=== PATIENT | female | born 1990 | race American Indian/Alaskan Native ===

== ENCOUNTER 2016-11-24 18:45 | Outpatient (CLI) | payer MEDICAID ==
[2016-11-24] MEDS ORDERED: LACTATED RINGERS 500 ML IV ONE (18:54)
[2016-11-24 19:04] VITALS: BP 116/77
== END 2016-11-24 20:30 | disposition home or self-care (01) ==
LOC: TRG 18:45
PROVIDERS: ATTEND Obstetrics & Gynecology
DX: Z34.93 Encounter for supervision of normal pregnancy, unspecified, third trimester (principal); Z3A.36 36 weeks gestation of pregnancy
CPT/HCPCS: 59025

== ENCOUNTER 2016-12-26 19:48 | Inpatient (IN) | payer MEDICAID ==
[2016-12-26] MEDS ORDERED: ePHEDrine SULFATE IV PRN (21:00)
[2016-12-26] MEDS ORDERED: SUBLIMAZE IV PRN (21:00)
[2016-12-26] MEDS ORDERED: BRETHINE IVP PRN (21:00)
[2016-12-26] MEDS ORDERED: BRETHINE SUB-Q PRN (21:00)
[2016-12-26] MEDS ORDERED: XYLOCAINE 2% INFILTRATI ONE (21:00)
[2016-12-26] MEDS ORDERED: MINERAL OIL PO PRN (21:00)
[2016-12-26] MEDS ORDERED: PITOCin/NS 20 UNIT/1000ML DRIP 20 UNITS/1,000 ML BAG IV SCH (21:00)
[2016-12-26] MEDS: LACTATED RINGERS 1,000 ML IV SCH (21:09)
[2016-12-26 22:01] LABS: Hematocrit 35.9 % (30.3-42.9); Hemoglobin 12.3 gm/dl (10.1-14.3); Mean Corpuscular HGB Conc 34 % (30-34); Mean Corpuscular Hemoglobin 30 pg (28-32); Mean Corpuscular Volume 89 fl (79-97); Platelet Count 225 K/mm3 (140-440); Red Blood Count 4.06 M/mm3 (3.65-5.03); Red Cell Distribution Width 13.1 % (13.2-15.2); White Blood Count 9.7 K/mm3 (4.5-11.0)
[2016-12-26] MEDS: CYTOTEC VAGINAL SCH (22:10)
[2016-12-27] MEDS: AMBIEN PO PRN (00:10)
[2016-12-27] MEDS: LACTATED RINGERS 1,000 ML IV SCH ×5 (02:06→23:02)
[2016-12-27] MEDS: CYTOTEC VAGINAL SCH (02:06)
--- NOTE | 2016-12-27 08:51 | History and Physical Report ---
History of Present Illness Date of examination: 12/27/16 Date of admission: 12/26/16 19:48 Chief complaint: sent for induction of labor History of present illness: Pt is a 26 year old female primigravida SUMAYA 12/19/16 at 41w1d who presents for induction of labor. She reports rare contractions and denies vaginal bleeding or leakage of fluid. She has had care at [facility]'s Staff Nurse Anesthetist since transfer into care at 24 wks complicated by morbid obesity, morbid obesity, migraine headaches, asthma, mh/o nephrolithiasis, and first trimester bleeding. She is GBS negative. Past History Past Medical History: asthma, neurologic (migraines ), kidney stones, other ( morbid obesity ) Past Surgical History: no surgical history Family/Genetic History: none Social history: no significant social history - Obstetrical History Expected Date of Delivery: 12/19/16 Actual Gestation: 41 Week(s) 1 Day(s) : 1 Medications and Allergies Allergies Allergy/AdvReac Type Severity Reaction Status Date / Time clindamycin Allergy Nausea Verified 11/24/16 18:50 Home Medications Medication Instructions Recorded Confirmed Last Taken Type Pnv95/Ferrous Fumarate/FA 1 each PO DAILY 11/24/16 11/24/16 1 Day Ago History [ Caplet] Active Meds: Active Medications Butorphanol Tartrate (Stadol) 2 mg IV Q2H PRN PRN Reason: Pain , Severe (7-10) Fentanyl (Sublimaze) 100 mcg IV Q2H PRN PRN Reason: Labor Pain Lactated Ringer's (Lactated Ringers) 1,000 mls @ 125 mls/hr IV DIRECT MONIE Last Admin: 12/27/16 08:01 Dose: 125 mls/hr Oxytocin/Sodium Chloride (Pitocin/Ns 20 Unit/1000ml Drip) 20 units in 1,000 mls @ 125 mls/hr IV DIRECT MONIE Mineral Oil (Mineral Oil) 30 ml PO QHS PRN PRN Reason: Constipation Misoprostol (Cytotec) 25 mcg VAGINAL Q4H MONIE Last Admin: 12/27/16 02:06 Dose: 25 mcg Zolpidem Tartrate (Ambien) 10 mg PO QHS PRN PRN Reason: Insomnia Last Admin: 12/27/16 00:10 Dose: 10 mg Review of Systems All systems: negative - Vital Signs Vital signs: Vital Signs Pulse Pulse Ox 108 H 97 12/26/16 20:15 12/26/16 20:15 Temp Pulse Resp BP Pulse Ox 97.2 F L 74 18 125/67 98 12/27/16 07:08 12/27/16 08:07 12/27/16 07:08 12/27/16 08:07 12/27/16 07:14 - Physical Exam Breasts: Positive: deferred Cardiovascular: Regular rate Lungs: Positive: Clear to auscultation Abdomen: Positive: soft (obese, gravid ) Genitourinary (Female): Positive: normal external genitalia Vagina: Positive: normal moisture Uterus: Positive: enlarged (gravid ) Extremities: Positive: edema (trace ) - Obstetrical FHR: auscultation normal Uterine Contraction Monitor Mode: External Cervical Dilatation: 1 Cervical Effacement Percentage: 60 station: -4 Uterine Contraction Frequency (min): 2-3 min Uterine Contraction Duration: 45 sec Uterine Contraction Pattern: Regular Uterine Tone Measurement Phase: Resting Uterine Contraction Intensity: Mild Results Result Diagrams: 12/26/16 20:30 Abnormal lab results 12/26/16 Range/Units 20:30 RDW 13.1 L (13.2-15.2) % All other labs normal. Assessment and Plan A: IUP at 41w1d s/p cytotec 25 mcg x2 doses Morbid Obesity Asthma Nephrolithiasis GBS negative P: Admit to labor and delivery. Routine intrapartum care.
[2016-12-27] MEDS ORDERED: PITOCin/NS 30 UNIT/500ML 30 UNITS/500 ML BAG IV SCH (10:00)
[2016-12-27] MEDS: STADOL IV PRN ×2 (10:50→12:45)
[2016-12-27] MEDS ORDERED: ePHEDrine SULFATE ONE (14:28)
[2016-12-27] MEDS ORDERED: ePHEDrine SULFATE IV PRN (15:39)
[2016-12-27] MEDS ORDERED: NARCAN 2 MG/2 ML IV PRN (15:39)
--- NOTE | 2016-12-27 15:39 | Anesthesia Consultation ---
Anesthesia Consult and Med Hx Date of service: 12/27/16 - Airway Anesthetic Teeth Evaluation: Good ROM Head & Neck: Adequate Mental/Hyoid Distance: Adequate Mallampati Class: Class II Intubation Access Assessment: Probably Good - Pulmonary Exam CTA: Yes - Cardiac Exam Cardiac Exam: RRR - Pre-Operative Health Status ASA Pre-Surgery Classification: ASA3 Proposed Anesthetic Plan: Epidural, Spinal - Pulmonary Hx Asthma: Yes (exercise induced) COPD: No Hx Pneumonia: No - Cardiovascular System Hx Hypertension: No - Central Nervous System Hx Seizures: No Hx Psychiatric Problems: No - Endocrine Hx Renal Disease: Yes (hx kidneystones 2014) Hx End Stage Renal Disease: No Hx Hypothyroidism: No Hx Hyperthyroidism: No - Hematic Hx Anemia: No Hx Sickle Cell Disease: No - Other Systems Hx Alcohol Use: No Hx Obesity: Yes (morbid BMI > 40)
[2016-12-27] MEDS: fentaNYL-BUPIV 2 MCG/ML-0.125% 200 MCG/100 ML BAG EPIDURAL SCH (16:45)
--- NOTE | 2016-12-27 16:55 | Ultrasound Report ---
LIMITED OB ULTRASOUND: History: position. Gestation: smith Position: cephalic Heart Rate: 141 BPM Estimated gestational ages 41 weeks one day.
[2016-12-27] MEDS ORDERED: MARCAINE-EPI/PF 0.5%-1:200,000 INFILTRATI ONE (19:04)
--- NOTE | 2016-12-27 20:44 | Event Note ---
Date: 12/27/16 Pt comfortable with epidural. Cervix 3.5/70/-3. SROM previously with clear fluid. IUPC and FSE placed. Continue routine intrapartum care.
[2016-12-28] MEDS: AMBIEN PO PRN (01:21)
[2016-12-28] MEDS ORDERED: PROAIR IH PRN (02:58)
[2016-12-28] MEDS ORDERED: PROVENTIL IH PRN (03:09)
[2016-12-28] MEDS: fentaNYL-BUPIV 2 MCG/ML-0.125% 200 MCG/100 ML BAG EPIDURAL SCH (07:01)
--- NOTE | 2016-12-28 07:06 | Event Note ---
Date: 12/28/16 Notified by nursing for bradycardic episode with spontaneous resolution. Patient had subsequent progression from 3cm to 6cm. IUPC in place. Will deliver for return of non-reasssuring tracing or arrest of dilation.
[2016-12-28] MEDS ORDERED: BRETHINE ONE (07:23)
[2016-12-28] MEDS ORDERED: BICITRA PO NR (07:30)
[2016-12-28] MEDS ORDERED: PEPCID IV NR (07:30)
[2016-12-28] MEDS ORDERED: REGLAN IV NR (07:30)
--- NOTE | 2016-12-28 07:30 | Progress Note ---
Assessment and Plan - Patient Problems (1) Post term at 41 weeks gestation Current Visit: Yes Status: Acute Plan to address problem: proceed with a primary delivery. (2) Prolonged labor Current Visit: Yes Status: Acute Qualifiers: Prolonged labor type: P Subjective - Subjective Date of service: 12/28/16 Interval history: 26y/o @ 41+2 weeks admitted for postdates induction. Patient has experienced a protracted labor. Currently tracing with evidence of late decelerations. Will discontinue pitocin and prep patient for delivery. Objective - Vital Signs Vital Signs: Vital Signs - 12hr 12/27/16 12/27/16 12/27/16 19:30 19:31 19:36 Pulse Rate 69 71 69 Blood Pressure 118/70 O2 Sat by Pulse 97 96 Oximetry 12/27/16 12/27/16 12/27/16 19:41 19:45 19:46 Pulse Rate 68 77 74 Blood Pressure 129/69 O2 Sat by Pulse 96 97 Oximetry 12/27/16 12/27/16 12/27/16 19:51 19:56 19:59 Pulse Rate 73 76 74 Blood Pressure 120/70 O2 Sat by Pulse 96 96 Oximetry 12/27/16 12/27/16 12/27/16 20:01 20:06 20:11 Pulse Rate 73 74 70 Blood Pressure O2 Sat by Pulse 96 95 97 Oximetry 12/27/16 12/27/16 12/27/16 20:15 20:16 20:21 Pulse Rate 86 92 H 105 H Blood Pressure 124/64 O2 Sat by Pulse 97 97 Oximetry 12/27/16 12/27/16 12/27/16 20:26 20:29 20:31 Pulse Rate 104 H 94 H 91 H Blood Pressure 122/74 O2 Sat by Pulse 96 97 Oximetry 12/27/16 12/27/16 12/27/16 20:36 20:41 20:46 Pulse Rate 88 98 H 115 H Blood Pressure 118/72 O2 Sat by Pulse 97 96 98 Oximetry 12/27/16 12/27/16 12/27/16 20:51 20:56 20:59 Pulse Rate 88 94 H 101 H Blood Pressure 112/69 O2 Sat by Pulse 96 97 Oximetry 12/27/16 12/27/16 12/27/16 21:01 21:06 21:11 Pulse Rate 111 H 111 H 111 H Blood Pressure O2 Sat by Pulse 97 96 96 Oximetry 12/27/16 12/27/16 12/27/16 21:14 21:16 21:21 Pulse Rate 94 H 104 H 102 H Blood Pressure 126/63 O2 Sat by Pulse 96 95 Oximetry 12/27/16 12/27/16 12/27/16 21:26 21:31 21:36 Pulse Rate 108 H 103 H 95 H Blood Pressure O2 Sat by Pulse 95 96 96 Oximetry 12/27/16 12/27/16 12/27/16 21:41 21:45 21:46 Pulse Rate 94 H 96 H 94 H Blood Pressure 106/64 O2 Sat by Pulse 96 96 Oximetry 12/27/16 12/27/16 12/27/16 21:51 21:56 21:59 Pulse Rate 84 96 H 90 Blood Pressure 111/65 O2 Sat by Pulse 95 95 Oximetry 12/27/16 12/27/16 12/27/16 22:01 22:04 22:06 Pulse Rate 96 H 81 88 Blood Pressure O2 Sat by Pulse 95 94 95 Oximetry 12/27/16 12/27/16 12/27/16 22:10 22:11 22:14 Pulse Rate 85 84 90 Blood Pressure 110/59 O2 Sat by Pulse 94 95 Oximetry 12/27/16 12/27/16 12/27/16 22:16 22:21 22:26 Pulse Rate 98 H 87 92 H Blood Pressure O2 Sat by Pulse 94 96 96 Oximetry 12/27/16 12/27/16 12/27/16 22:29 22:31 22:36 Pulse Rate 90 90 93 H Blood Pressure 110/61 O2 Sat by Pulse 95 94 Oximetry 12/27/16 12/27/16 12/27/16 22:41 22:45 22:46 Pulse Rate 91 H 92 H 87 Blood Pressure 120/60 O2 Sat by Pulse 95 94 95 Oximetry 12/27/16 12/27/16 12/27/16 22:51 22:56 22:59 Pulse Rate 85 86 95 H Blood Pressure 113/59 O2 Sat by Pulse 95 95 Oximetry 12/27/16 12/27/16 12/27/16 23:01 23:06 23:11 Pulse Rate 92 H 86 82 Blood Pressure O2 Sat by Pulse 97 95 97 Oximetry 12/27/16 12/27/16 12/27/16 23:15 23:16 23:21 Pulse Rate 86 85 84 Blood Pressure 119/58 O2 Sat by Pulse 95 96 Oximetry 12/27/16 12/27/16 12/27/16 23:26 23:29 23:31 Pulse Rate 90 83 90 Blood Pressure 105/66 O2 Sat by Pulse 95 94 95 Oximetry 12/27/16 12/27/16 12/27/16 23:36 23:38 23:41 Pulse Rate 87 89 81 Blood Pressure O2 Sat by Pulse 95 94 95 Oximetry 12/27/16 12/27/16 12/27/16 23:44 23:46 23:50 Pulse Rate 95 H 83 92 H Blood Pressure 107/65 109/62 O2 Sat by Pulse 95 Oximetry 12/27/16 12/27/16 12/28/16 23:51 23:56 00:00 Pulse Rate 68 81 98 H Blood Pressure 105/58 O2 Sat by Pulse 97 96 Oximetry 12/28/16 12/28/16 12/28/16 00:01 00:06 00:11 Pulse Rate 97 H 115 H 96 H Blood Pressure O2 Sat by Pulse 96 96 96 Oximetry 12/28/16 12/28/16 12/28/16 00:14 00:16 00:20 Pulse Rate 90 87 96 H Blood Pressure 104/58 O2 Sat by Pulse 96 94 Oximetry 12/28/16 12/28/16 12/28/16 00:21 00:26 00:30 Pulse Rate 91 H 102 H 102 H Blood Pressure 122/60 O2 Sat by Pulse 94 97 Oximetry 12/28/16 12/28/16 12/28/16 00:31 00:36 00:41 Pulse Rate 99 H 103 H 123 H Blood Pressure O2 Sat by Pulse 95 97 97 Oximetry 12/28/16 12/28/16 12/28/16 00:45 00:46 00:51 Pulse Rate 111 H 124 H 116 H Blood Pressure 124/74 O2 Sat by Pulse 97 96 Oximetry 12/28/16 12/28/16 12/28/16 00:56 01:01 01:06 Pulse Rate 114 H 118 H 100 H Blood Pressure 111/65 O2 Sat by Pulse 97 96 96 Oximetry 12/28/16 12/28/16 12/28/16 01:11 01:15 01:16 Pulse Rate 112 H 113 H 108 H Blood Pressure 109/59 O2 Sat by Pulse 97 95 Oximetry 12/28/16 12/28/16 12/28/16 01:21 01:26 01:29 Pulse Rate 106 H 103 H 101 H Blood Pressure 106/56 O2 Sat by Pulse 96 95 94 Oximetry 12/28/16 12/28/16 12/28/16 01:31 01:36 01:41 Pulse Rate 117 H 107 H 103 H Blood Pressure O2 Sat by Pulse 95 96 95 Oximetry 12/28/16 12/28/16 12/28/16 01:46 01:51 01:56 Pulse Rate 110 H 104 H 102 H Blood Pressure 117/61 O2 Sat by Pulse 95 96 94 Oximetry 12/28/16 12/28/16 12/28/16 02:01 02:06 02:25 Pulse Rate 101 H 94 H 85 Blood Pressure 103/58 O2 Sat by Pulse 95 95 96 Oximetry 12/28/16 12/28/16 12/28/16 02:30 02:35 02:40 Pulse Rate 84 83 85 Blood Pressure O2 Sat by Pulse 97 97 97 Oximetry 12/28/16 12/28/16 12/28/16 02:45 02:50 02:55 Pulse Rate 87 83 78 Blood Pressure O2 Sat by Pulse 97 97 96 Oximetry 12/28/16 12/28/16 12/28/16 03:00 03:05 03:10 Pulse Rate 81 82 80 Blood Pressure O2 Sat by Pulse 97 96 96 Oximetry 12/28/16 12/28/16 12/28/16 03:15 03:20 03:25 Pulse Rate 81 83 84 Blood Pressure O2 Sat by Pulse 96 96 96 Oximetry 12/28/16 12/28/16 12/28/16 03:28 03:30 03:33 Pulse Rate 83 78 80 Blood Pressure O2 Sat by Pulse 94 97 94 Oximetry 12/28/16 12/28/16 12/28/16 03:35 03:40 03:41 Pulse Rate 83 77 81 Blood Pressure O2 Sat by Pulse 95 95 94 Oximetry 12/28/16 12/28/16 12/28/16 03:45 03:46 03:50 Pulse Rate 78 78 76 Blood Pressure O2 Sat by Pulse 95 94 96 Oximetry 12/28/16 12/28/16 12/28/16 03:55 04:00 04:02 Pulse Rate 75 74 83 Blood Pressure O2 Sat by Pulse 95 95 93 Oximetry 12/28/16 12/28/16 12/28/16 04:05 04:10 04:14 Pulse Rate 77 74 85 Blood Pressure O2 Sat by Pulse 96 95 94 Oximetry 12/28/16 12/28/16 12/28/16 04:18 04:23 04:28 Pulse Rate 88 78 77 Blood Pressure O2 Sat by Pulse 96 96 96 Oximetry 12/28/16 12/28/16 12/28/16 04:33 04:38 04:43 Pulse Rate 86 102 H 96 H Blood Pressure O2 Sat by Pulse 95 97 97 Oximetry 12/28/16 12/28/16 12/28/16 04:48 04:53 04:58 Pulse Rate 102 H 92 H 89 Blood Pressure O2 Sat by Pulse 97 96 96 Oximetry 12/28/16 12/28/16 12/28/16 05:03 05:08 05:13 Pulse Rate 94 H 88 89 Blood Pressure O2 Sat by Pulse 96 96 96 Oximetry 12/28/16 12/28/16 12/28/16 05:18 05:23 05:28 Pulse Rate 89 93 H 116 H Blood Pressure O2 Sat by Pulse 96 96 98 Oximetry 12/28/16 12/28/16 12/28/16 05:37 05:42 05:47 Pulse Rate 90 86 80 Blood Pressure O2 Sat by Pulse 100 99 99 Oximetry 12/28/16 12/28/16 12/28/16 05:52 05:57 06:02 Pulse Rate 83 82 80 Blood Pressure O2 Sat by Pulse 99 99 99 Oximetry 12/28/16 12/28/16 12/28/16 06:07 06:12 06:17 Pulse Rate 78 82 79 Blood Pressure O2 Sat by Pulse 99 99 99 Oximetry 12/28/16 12/28/16 12/28/16 06:22 06:27 06:32 Pulse Rate 80 98 H 79 Blood Pressure O2 Sat by Pulse 99 99 99 Oximetry 12/28/16 12/28/16 12/28/16 06:37 06:42 06:47 Pulse Rate 84 82 81 Blood Pressure O2 Sat by Pulse 98 98 99 Oximetry 12/28/16 12/28/16 12/28/16 06:52 06:57 07:01 Pulse Rate 99 H 82 84 Blood Pressure 91/51 O2 Sat by Pulse 98 99 Oximetry 12/28/16 12/28/16 12/28/16 07:02 07:07 07:12 Pulse Rate 88 83 82 Blood Pressure O2 Sat by Pulse 97 96 97 Oximetry 12/28/16 12/28/16 07:17 07:22 Pulse Rate 85 83 Blood Pressure O2 Sat by Pulse 97 98 Oximetry - Labs Labs: Abnormal Labs 12/26/16 20:30 RDW 13.1 L
--- NOTE | 2016-12-28 07:31 | Procedure Note ---
OB Delivery Note - Delivery Date of Delivery: 12/28/16 Surgeon: MARZENA STEVENS Estimated blood loss: other (1400ml) - Section Preop diagnosis: nonreassuring FHR tracing Postop diagnosis: same section procedure: section, primary low transverse Disposition: PACU Complications: uterine atony - Infant A at 1 minute: 8 at 5 minutes: 9 Gender: Male (weight 9 lbs. 15 oz.)
[2016-12-28] MEDS ORDERED: NARCAN 0.4 MG/1 ML IV PRN ×2 (07:32→09:25)
[2016-12-28] MEDS ORDERED: TORADOL IV PRN (07:32)
[2016-12-28] MEDS ORDERED: TYLENOL PO PRN (07:32)
[2016-12-28] MEDS ORDERED: LANSINOH TP PRN (07:32)
[2016-12-28] MEDS ORDERED: MYLICON PO PRN (07:32)
[2016-12-28] MEDS ORDERED: MORPHINE IV PRN (07:32)
[2016-12-28] MEDS ORDERED: MOTRIN PO PRN (07:32)
[2016-12-28] MEDS ORDERED: TUCKS PAD TP PRN (07:32)
[2016-12-28] MEDS ORDERED: BRETHINE SUB-Q NR (07:38)
[2016-12-28] MEDS ORDERED: SODIUM CHLORIDE FLUSH SYRINGE 10 ML IV NR ×2 (08:00→10:00)
[2016-12-28] MEDS ORDERED: PITOCin/NS 20 UNIT/1000ML DRIP 20 UNITS/1,000 ML BAG IV SCH ×2 (08:00)
[2016-12-28] MEDS ORDERED: D5LR 1,000 ML IV SCH (08:00)
[2016-12-28] MEDS ORDERED: ANCEF/STERILE WATER 2 GM/20 ML 2 GM/20 ML SYRINGE IV NR (08:00)
[2016-12-28] MEDS ORDERED: LACTATED RINGERS 1,000 ML IV SCH (08:00)
[2016-12-28 09:01] LABS: Anion Gap 20 mmol/L; Blood Urea Nitrogen 10 mg/dL (7-17); Calcium 7.7 mg/dL (8.4-10.2); Carbon Dioxide 21 mmol/L (22-30); Chloride 101.7 mmol/L (98-107); Glucose 119 mg/dL (65-100); Potassium 3.6 mmol/L (3.6-5.0); Sodium 139 mmol/L (137-145)
--- NOTE | 2016-12-28 09:05 | Operative Report ---
Operative Report Operative Report: Date of surgery: 12/28/2016 Preoperative diagnosis: at 41+2 weeks; nonreassuring heart rate tracing; morbid obesity Postoperative diagnosis: Same as above; uterine atony Procedure: Primary low transverse delivery Surgeon: Michelle Tan M.D. Anesthesia: Regional Estimated blood loss: 1400 mL Findings: Liveborn male with Apgars of 8 and 9 weight 9 lbs. 15 oz. Indications: 26-year-old at 41+2 weeks who was admitted for induction of labor secondary to being postterm. Her intrapartum course was complicated by protracted labor and during the course of her labor the patient developed late decelerations. The patient had cervical progression to 6 cm. Procedure: The patient was taken to the operating room and given regional anesthesia without complication. She was prepped and draped in a normal sterile fashion. A Pfannenstiel skin incision was made down to layer the fascia which was nicked in the midline extended laterally with the Bovie cautery. The superior aspect of the rectus fascia was grasped with Maria D clamps x2 and the rectus muscles off sharply. This was done in inferior fashion as well. The rectus muscle midline and peritoneum entered bluntly. An Benjamin retractor was then inserted. A bladder blade was placed. The vesicouterine peritoneum was then entered sharply with Metzenbaum scissors. A bladder flap was created digitally. A low transverse uterine incision was then made and extended digitally. There was clear fluid upon entry into the uterine cavity. The head was delivered through the incision with fundal pressure. The cord was clamped and cut x2 and infant was passed off to pediatrics. The placenta was then manually extracted. The uterus was then exteriorized and cleared of clots and debris. The uterine incision was then closed in a running locked fashion with 0 Vicryl additional imbricating stitch was applied for 2 layer closure. The serosa was then reapproximated with 3-0 Vicryl. During the procedure there was noted that there was evidence of uterine atony. The patient's Pitocin was increased without any significant improvement. The patient was then given Methergine intraoperatively. The posterior cul-de-sac was then copiously irrigated. The uterus was replaced back into the abdomen and pelvis were the gutters were then irrigated. The Benjamin retractor was then removed. The peritoneum was then reapproximated with 3-0 Vicryl incorporating the rectus muscle. The fascia was then closed with 0 Vicryl in a running fashion. The skin was then reapproximated with 3-0 Monocryl on a Hayder needle subcuticular fashion. Steri-Strips to place across the incision and a Crede procedures performed at the end of the surgery. A pressure dressing was applied to the incision. The surgery productive of a liveborn male infant with Apgars of 8 and 9 weight 9 lbs. 15 oz. The patient was taken to the recovery room in stable condition. All sponge laps and needle counts correct x2.
[2016-12-28] MEDS ORDERED: NUBAIN IV PRN (09:25)
[2016-12-28] MEDS ORDERED: ZOFRAN IV PRN (09:25)
[2016-12-28] MEDS ORDERED: BENADRYL IV PRN (09:25)
--- NOTE | 2016-12-28 09:25 | Anesthesia Day of Surgery ---
Anesthesia Day of Surgery - Day of Surgery Patient Examined: Yes Patient H&P Reviewed: Yes Patient is NPO: Yes
[2016-12-28] MEDS ORDERED: ANCEF/STERILE WATER 2 GM/20 ML IV ONE (09:38)
[2016-12-28] MEDS ORDERED: WATER FOR IRRIG STERILE IR ONE (09:40)
[2016-12-28] MEDS ORDERED: NACL 0.9% IR ONE (09:40)
[2016-12-28] MEDS ORDERED: ZOFRAN ONE (09:48)
[2016-12-28] MEDS ORDERED: XYLOCAINE MPF 2% ONE ×4 (09:48)
[2016-12-28] MEDS ORDERED: METHERGINE IM ONE ×2 (09:56→15:00)
[2016-12-28] MEDS ORDERED: ePHEDrine SULFATE ONE (10:09)
[2016-12-28] MEDS ORDERED: MORPHINE ONE ×2 (10:14)
[2016-12-28] MEDS ORDERED: NACL 0.9% 1000 ML 1,000 ML ONE (10:34)
[2016-12-28] MEDS: DILAUDID IV PRN ×3 (10:35→19:07)
[2016-12-28 20:42] LABS: Hematocrit 28.2 % (30.3-42.9); Hemoglobin 9.6 gm/dl (10.1-14.3)
[2016-12-28] MEDS ORDERED: MILK OF MAGNESIA PO PRN (22:00)
[2016-12-29] MEDS: DILAUDID IV PRN (00:08)
[2016-12-29] MEDS: PERCOCET 5/325 PO PRN ×4 (02:12→21:22)
--- NOTE | 2016-12-29 11:03 | Progress Note ---
Assessment and Plan - Patient Problems (1) Post term at 41 weeks gestation Current Visit: Yes Status: Acute Plan to address problem: Patient doing well Routine postoperative care (2) Prolonged labor Current Visit: Yes Status: Acute Qualifiers: Prolonged labor type: P Subjective - Subjective Date of service: 12/29/16 Interval history: Patient is doing well. She has been able to void since removal of her [place]. She is currently tolerating a regular diet. Patient reports: appetite normal, voiding normally, pain well controlled [place]: doing well Objective - Vital Signs Latest vital signs: Vital Signs Temp Pulse Pulse Resp BP BP Pulse Ox 12/29/16 00:00 99.4 F 98 H 18 111/55 12/28/16 17:10 97.6 F 86 18 99/49 12/28/16 12:09 98.1 F 12/28/16 12:00 81 29 H 127/69 96 12/28/16 11:55 80 28 H 122/72 96 12/28/16 11:50 83 23 122/68 96 12/28/16 11:45 77 22 119/65 96 12/28/16 11:40 76 24 120/70 97 12/28/16 11:35 75 22 118/66 98 12/28/16 11:30 76 24 125/68 98 12/28/16 11:25 69 16 120/73 99 12/28/16 11:21 85 22 131/68 100 12/28/16 11:15 81 27 H 125/68 99 12/28/16 11:10 81 25 H 128/77 99 12/28/16 11:05 80 20 121/65 100 Intake and Output 12/28/16 12/29/16 12/29/16 22:59 06:59 14:59 Intake Total 250 360 Output Total 1900 Balance 250 -1540 Intake: IV 250 PITOCin/NS 20 UNIT/1000ML 250 DRIP 20 units In 1,000 ml @ 125 mls/hr IV DIRECT MONIE Rx#:[id number] Oral 360 Output: Urine 1900 Indwelling Catheter 900 Void 1000 Other: Total, Intake Amount 360 Total, Output Amount 1000 - Exam Abdomen: Present: normal appearance, soft Uterus: Present: normal, firm - Labs Labs: Abnormal lab results 12/28/16 Range/Units 20:14 Hgb 9.6 L (10.1-14.3) gm/dl Hct 28.2 L D (30.3-42.9) %
[2016-12-30] MEDS: PERCOCET 5/325 PO PRN ×2 (02:36→09:15)
--- NOTE | 2016-12-30 08:19 | Progress Note ---
Assessment and Plan A/P POD#2 s/p primary c/s doing well ambulating well +flatus A+ no rhogam indicated male ( discussed circumcision) abstinence for cotnrol h/h 12.3/35.9---9.6/28.2 ( ferrous gluconate written) VSS d/c home f/u in 2 weeks for incision check met criteria for discharge Subjective - Subjective Date of service: 12/30/16 Principal diagnosis: s/p Primary c/s ( failure to progress) Patient reports: appetite normal, voiding normally, pain well controlled, flatus , ambulating normally [place]: doing well, nursing well, bottle feeding Objective - Vital Signs Latest vital signs: Vital Signs Temp Pulse Resp BP 12/30/16 02:36 18 12/29/16 23:08 97.5 F L 94 H 20 119/65 12/29/16 21:22 18 12/29/16 16:00 98.7 F 89 18 118/58 Intake and Output 12/29/16 12/30/16 12/30/16 22:59 06:59 14:59 Intake Total 480 Balance 480 Intake: Oral 240 Intake, Free Water 240 Other: Total, Intake Amount 240 Voiding Method Toilet # Voids Void 1 - Exam Breasts: Present: normal Cardiovascular: Present: Regular rate, Normal S1 Lungs: Present: Clear to auscultation, Normal air movement Abdomen: Present: normal appearance, soft. Absent: distention, tenderness Vulva: both: normal Uterus: Present: normal, firm, fundal height below umbilicus (3cm below). Absent: bogginess Extremities: Present: normal Deep Tendon Reflex Grade: Normal +2 Incision: Present: normal, dry, intact
--- NOTE | 2016-12-30 08:21 | Discharge Summary ---
Providers - Providers Date of Admission: 12/26/16 19:48 Date of discharge: 12/30/16 Attending physician: JF TORRES MD Primary care physician: JF TORRES MD Hospitalization Reason for admission: induction of labor Delivery: Procedure: section Episiotomy: none Laceration: none Incision: normal, dry, intact Other procedures: none complications: none Discharge diagnosis: IUP at term delivered baby: male Condition at discharge: Good Disposition: DISCHARGED TO HOME OR SELFCARE Plan - Discharge Medications Prescriptions: Docusate Sodium [Colace] 100 mg PO BID PRN #60 capsule PRN Reason: Constipation Ferrous Gluconate [Fergon 325 MG tab] 325 mg PO TID #30 tablet Ferrous Sulfate [Feosol 325 MG tab] 325 mg PO BID #60 tablet Ibuprofen [Motrin] 800 mg PO Q8HR PRN #60 tablet PRN Reason: Pain Oxycodone HCl/Acetaminophen [Percocet 7.5/325 mg] 1 each PO Q6HR PRN #45 tablet PRN Reason: Pain - Provider Discharge Summary Activity: routine, no sex for 6 weeks, no heavy lifting 4 weeks Diet: routine Instructions: routine Additional instructions: [] Smoking cessation referral if applicable(refer to patient education folder for contact #) [] Refer to [facility] Booklet Call your doctor immediately for: * Fever > 100.5 * Heavy vaginal bleeding ( >1 pad per hour) * Severe persistent headache * Shortness of breath * Reddened, hot, painful area to leg or breast * Drainage or odor from incision. * Keep incision clean and dry at all times and follow doctor's instructions regarding bathing/showering - Follow up plan Follow up: JF TORRES MD [Primary Care Provider] - 14 Days
[2016-12-30 08:38] VITALS: BP 124/69
== END 2016-12-30 09:50 | disposition home or self-care (01) | DRG 765 ==
LOC: LD 19:48 → OB 12-28 12:19
PROVIDERS: ADMIT Obstetrics & Gynecology; ATTEND Obstetrics & Gynecology
PROC: 10D00Z1 Extraction of Products of Conception, Low, Open Approach (ICD-10-PCS; principal; 2016-12-28)
DX: O76 Abnormality in fetal heart rate and rhythm complicating labor and delivery (principal); O63.9 Long labor, unspecified; Z68.43 Body mass index [BMI] 50.0-59.9, adult; O26.833 Pregnancy related renal disease, third trimester; O48.0 Post-term pregnancy; O99.214 Obesity complicating childbirth; E66.01 Morbid (severe) obesity due to excess calories; O62.2 Other uterine inertia; N20.0 Calculus of kidney; Z3A.41 41 weeks gestation of pregnancy; Z87.442 Personal history of urinary calculi; Z37.0 Single live birth; Z88.1 Allergy status to other antibiotic agents; O99.52 Diseases of the respiratory system complicating childbirth; J45.909 Unspecified asthma, uncomplicated
CPT/HCPCS: 36415; 76815; 80048; 85014; 85018; 85027; 86850; 86900; 86901; J0595; J0690; J1170; J2210; J2270; J2405; J2590; J2765; J3105; J7030; J7120; J7121